=== PATIENT | male | born 1950 | race Caucasian/White ===

== ENCOUNTER 2020-05-22 10:03 | Outpatient (CLI) | payer MEDICARE, SELFPAY ==
--- NOTE | ~2020-05-22 | CT_ITS ---
EXAMINATION: CT lung screening DATE: 05/22/2020 11:35 INDICATION: Personal history of nicotine dependence TECHNIQUE: Computed tomography (CT) of the chest was performed without intravenous contrast. The dose -length product was 655.29 mGy-cm. Automated exposure control and iterative reconstruction technique were employed. COMPARISON: None FINDINGS: Heart size upper normal. There is atherosclerosis of the aorta and coronary arteries. No si gnificant pleural or pericardial effusion. Possible left renal mass. Recommend correlation with contr ast-enhanced CT abdomen. Gallstones. Gallbladder is contracted. No significant pleural or pericardial effusion. No thoracic lymphadenopathy. There is gynecomastia. Densely calcified granuloma left upper lobe. There is emphysema. No focal airspace consolidation. 3 mm nodule, image 37, in the right upper lobe. 5 mm nodule in the left upper lobe just lateral to the descending thoracic aorta, image 42. De nsely calcified granuloma left lower lobe. Motion artifact limits evaluation for subtle nodules in th e lower lobes. IMPRESSION: 1. Lung-RADS category 2: Benign appearance or behavior. Continue annual screening with noncontrast lo w-dose chest CT in 12 months. 2: Possible left renal mass. Follow-up contrast-enhanced CT abdomen recommended for further assessme nt. 3: Cholelithiasis. Reviewed, dictated and finalized at location B. IMPRESSION: 1. Lung-RADS category 2: Benign appearance or behavior. Continue annual screeni ng with noncontrast low-dose chest CT in 12 months. 2: Possible left renal mass. Follow-up contrast-enhanced CT abdomen recommende d for further assessment. 3: Cholelithiasis.
[2020-05-22 10:20] VITALS: PULSE 80; O2SAT 96
[2020-05-22 10:25] VITALS: PULSE 130; O2SAT 95
[2020-05-22 10:40] VITALS: PULSE 84; O2SAT 95
--- NOTE | 2020-05-22 11:05 | HOMEO2EVAL ---
Home Oxygen Evaluation RC: Home Oxygen (O2) Evaluation Start: 05/22/20 10:57 Freq: Status: Active Protocol: RPE Activity Type Activity Date Activity User E-Sign Co-Sign Detail Recorded Client Recorded Date Recorded By Document 05/22/20 10:20 [email or web address] [email or web address] 05/22/20 11:04 DJO Document 05/22/20 10:25 [email or web address] [email or web address] 05/22/20 11:04 DJO Document 05/22/20 10:40 [email or web address] [email or web address] 05/22/20 11:04 DJO 05/22/20 05/22/20 05/22/20 10:20 10:25 10:40 Home O2 Evaluation Test Phase Resting Exercise Resting Oxygen Delivery Room Air Room Air Room Air Pulse Oximetry (90-100 %) 96 95 95 Pulse Rate (60-100 beats/min) 80 130 H 84 Activity Tolerance Good Rating of Perceived Dyspnea (PD) +2 Mild, Some Difficulty, Noticeable to the Observer Ambulation Distance (feet) 500 Treatment Charges O2 Evaluation - Outpatient
== END 2020-05-22 10:04 | disposition home or self-care (01) ==
PROVIDERS: Visit Provider Internal Medicine Pulmonary Disease
DX: Z12.2 Encounter for screening for malignant neoplasm of respiratory organs (principal); Z87.891 Personal history of nicotine dependence; J44.9 Chronic obstructive pulmonary disease, unspecified
CPT/HCPCS: 71271; 94618

== ENCOUNTER 2020-05-30 09:39 | Outpatient (CLI) | payer MEDICARE, SELFPAY ==
--- NOTE | ~2020-05-30 | CT_ITS ---
EXAMINATION: CT abdomen wo/w con DATE: 05/30/2020 10:22 INDICATION: Left kidney mass. TECHNIQUE: Computed tomography (CT) of the abdomen was performed without and with 100 mL Omnipaque 35 0 intravenous contrast. Automated exposure control and iterative reconstruction technique were employ ed. The dose-length product was 1969.99 mGy-cm. COMPARISON: Chest CT 05/22/2020 FINDINGS: The visualized portions of the lung bases demonstrate mild atelectasis. The heart size is n ormal. There are coronary artery calcifications. There are extensive calcifications of the aortic matilda ve. No pericardial effusion. There are surgical changes of the stomach. The liver is normal. There ar e changes of cholecystectomy. There are dropped gallstones in the gallbladder fossa. The spleen, panc reas, adrenal glands,, and right kidney are normal. There is a 4.3 cm enhancing mass in left kidney. There are are extensive arterial calcifications including at the oscar of the kidneys. There are no di lated loops of bowel. There is mild right common iliac lymphadenopathy measuring up to 13 x 11 mm. Th ere is no free intraperitoneal fluid. There are bridging endplate osteophytes at multiple levels in t he spine, consistent with diffuse idiopathic skeletal hyperostosis (DISH). There is mild lumbar spond ylosis. IMPRESSION: 1. 4.3 cm enhancing left kidney mass, consistent with renal cell carcinoma. 2. Mild right common iliac lymphadenopathy, likely reactive. Reviewed, dictated and finalized at location A.
[2020-05-30 10:14] LABS: Estimated Glomerular Filt Rate > 60
== END 2020-05-30 09:40 | disposition home or self-care (01) ==
PROVIDERS: PCP Family Medicine; Visit Provider Internal Medicine Pulmonary Disease
DX: N28.89 Other specified disorders of kidney and ureter (principal)
CPT/HCPCS: 74170; Q9967